=== PATIENT | male | born 1990 | race Two or more races ===

== ENCOUNTER 2016-11-06 18:57 | Emergency (ER) | payer OTHER ==
[2016-11-06 19:07] VITALS: BP 127/55; PULSE 85; RESP 16; TEMP 98.8; O2SAT 96
--- NOTE | 2016-11-06 19:31 | EDPHY ---
H & P Time Seen by Provider: 11/06/16 19:14 HPI/ROS: CHIEF COMPLAINT: Right leg whitney rash HISTORY OF PRESENT ILLNESS: Patient was in [place] 10 days ago and got poison syed exposure. It was initially itchy on his right whitney and blistery but over the last 2 days started using yellow fluid and become more painful and felt like it was more reddish in discolored. No lymphangitis. No new trauma. REVIEW OF SYSTEMS: No fevers or chills PAST MEDICAL HISTORY: Thumb surgery and MRSA Social history: No IV drug abuse General Appearance: Alert and conversant, cooperative. Patient has area that is 10 x 3 cm on the right anterior whitney which is red. There is a central area with vesicles. It is tender to palpation but no fluctuance or crepitus. No eschar and no blisters currently. Couple of vesicles remain specially superiorly. Is no lymphangitis and compartments are soft. Emergency Department course/MDM: Patient presents with likely bacterial superinfection of poison syed. His other poison syed spots on his body do not have the same type of symptoms. History of MRSA, will treat with Keflex and Bactrim. Does not have systemic signs or symptoms. Smoking Status: Never smoked Constitutional: Initial Vital Signs Temperature (C) 37.1 C 11/06/16 19:04 Heart Rate 85 11/06/16 19:04 Respiratory Rate 16 11/06/16 19:04 Blood Pressure 127/55 H 11/06/16 19:04 O2 Sat (%) 96 11/06/16 19:04 O2 Delivery Mode Room Air Allergies/Adverse Reactions: No Known Allergies Allergy (Unverified 11/06/16 19:04) Home Medications: Medication Instructions Recorded Cephalexin [Keflex] 500 mg PO QID #28 cap 11/06/16 Sulfamethox/Tmp 800/160 mg 1 tab PO BID@1000,2200 #14 tab 11/06/16 [Bactrim Ds] MDM/Departure - Depart Disposition: Home, Routine, Self-Care Clinical Impression: Poison syed dermatitis, cellulitis right whitney Condition: Good Instructions: Cephalexin (By mouth), Sulfamethoxazole/Trimethoprim (By mouth), Cellulitis (ED) Prescriptions: Cephalexin [Keflex] 500 mg PO QID #28 cap Sulfamethox/Tmp 800/160 mg [Bactrim Ds] 1 tab PO BID@1000,2200 #14 tab Referrals: NONE *PRIMARY CARE P,. [Primary Care Provider] - As per Instructions Wilfrid Maldonado MD [Medical Doctor] - As per Instructions Jd Martinez MD [[facility] Primary Care Provider] - As per Instructions
[2016-11-06] MEDS ORDERED: CEPHALEXIN 500MG PREPACK#4 BTL TAKEHOME ONE (19:32)
[2016-11-06] MEDS ORDERED: SULFAMET/TMP DS PREPACK#2 BTL TAKEHOME ONE (19:32)
[2016-11-06] MEDS ORDERED: CEPHALEXIN 500 MG CAP PO ONE (19:46)
== END 2016-11-06 19:50 | disposition home or self-care (01) ==
DX: L23.7 Allergic contact dermatitis due to plants, except food (principal); L03.115 Cellulitis of right lower limb

== ENCOUNTER 2017-01-22 09:03 | Emergency (ER) | payer OTHER ==
[2017-01-22 09:08] VITALS: TEMP 100.2
[2017-01-22] MEDS ORDERED: LORazepam 1 MG TAB PO ONE (09:17)
--- NOTE | 2017-01-22 09:30 | EDPHY ---
H & P Stated Complaint: ? 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 when he was working he started to develop flu-like symptoms including fever, chills, rhinorrhea, nonproductive cough at this has subsequently triggered acute anxiety reaction. He took an Uber to the ER. No nuchal rigidity. No headache. No otalgia. No abdominal pain. No dyspnea. No peripheral edema. REVIEW OF SYSTEMS: A ten point review of systems was performed and is negative with the exception of the items mentioned in the HPI PAST MEDICAL & SURGICAL HISTORY: No pertinent medical or surgical history SOCIAL HISTORY:positive marijuana smoking PHYSICAL EXAM (Prior to examination, patient consented to physical exam, hands were washed and my usual and customary physical exam procedures followed) 1) GENERAL: Well-developed, well-nourished, alert and oriented. Appears nontoxic . 2) HEAD: Normocephalic, atraumatic 3) HEENT: Pupils equal, round, reactive to light bilaterally. Sclera anicteric. Nasopharynx, oropharynx, clear, no lesions. Ears bilaterally with normal tympanic membranes. 4) NECK: Full range of motion, no meningeal signs. No adenopathy 5) LUNGS: Clear auscultation bilaterally, no wheezes, no rhonchi, no retractions. 6) HEART: Regular rate and rhythm, no murmur, no heave, no gallop. 7) ABDOMEN: No guarding, no rebound, no focal tenderness, negative McBurney's, negative Smith's, negative Rovsing's, negative peritoneal sign, 8) MUSCULOSKELETAL: Moving all extremities, no focal areas of tenderness, no obvious trauma. No peripheral edema or discoloration. Negative Homans no palpable cord 9) BACK: no obvious trauma, no visual or palpable abnormality. 10) SKIN: No rash, no petechiae. 11) Psychiatric: Patient is oriented X 3, there is no agitation. DIFFERENTIAL DIAGNOSIS: in no particular include but limited to pulmonary embolus, pneumothorax, pneumonia, influenza, acute anxiety reaction (Cleopatra Jones) Constitutional: Initial Vital Signs Temperature (C) 37.9 C 01/22/17 09:04 Heart Rate 113 H 01/22/17 09:04 Respiratory Rate 26 H 01/22/17 09:04 Blood Pressure 108/57 L 01/22/17 09:04 O2 Sat (%) 99 01/22/17 09:04 O2 Delivery Mode Room Air Allergies/Adverse Reactions: No Known Allergies Allergy (Verified 01/22/17 09:04) Home Medications: Medication Instructions Recorded NK [No Known Home Meds] 01/22/17 Medical Decision Making - Diagnostics Imaging: Discussed imaging studies w/ call center operator Radiologist - Diagnostics Imaging Results: Imaging Impressions Chest X-Ray 01/22/17 09:21 Impression: Hypoventilatory chest with mild peribronchial thickening which can be seen with airways disease/bronchitis. Imaging Impressions Chest X-Ray 01/22/17 09:21 Impression: Hypoventilatory chest with mild peribronchial thickening which can be seen with airways disease/bronchitis. Images reviewed myself (Cleopatra Jones) ED Course/Re-evaluation: I did not see this patient while he was in the emergency department. However his care was discussed with the PA while the patient was in the department. I agree with treatment plan and management (Kee Soni) This patient was re-evaluated with serial examinations. Most recent exam at 11: 50 a.m. he is sleeping, heart rate decreased, he is not tachypneic. I discussed his negative influenza testing. Discussed his negative chest x-ray show no pneumothorax. Doubt pulmonary embolus in this patient who is low risk for pulmonary embolus.. Plan will be discharge. I do not think that further diagnostic studies indicated. Discussed more than likely viral etiology for his URI symptoms.Care of patient under supervision of secondary supervising physician Dr Soni . (Cleopatra Jones) - Data Points Laboratory Results: 01/22/17 01/22/17 09:20 09:17 Nasal Influenza A PCR NEGATIVE FOR FLU A (NEGATIVE) Nasal Influenza B PCR NEGATIVE FOR FLU B (NEGATIVE) Influenza A & B (PCR) Cancelled Medications Given: Discontinued Medications Lorazepam (Ativan) 1 mg PO EDNOW ONE Stop: 01/22/17 09:18 Last Admin: 01/22/17 09:21 Dose: 1 mg Departure - Departure Disposition: Home, Routine, Self-Care Clinical Impression: Anxiety, Viral syndrome Condition: Good Instructions: Viral Syndrome (ED), Anxiety (ED) Additional Instructions: Return to the emergency department immediately for change in breathing habits, change in voice, change in swallowing habits, change in mental status, or any other symptoms that concern you. Referrals: [facility],. [Clinic] - 1-2 days without fail
[2017-01-22 11:36] VITALS: BP 122/74; PULSE 96; RESP 16; O2SAT 95
== END 2017-01-22 12:27 | disposition home or self-care (01) ==
DX: B34.9 Viral infection, unspecified (principal); F41.9 Anxiety disorder, unspecified